=== PATIENT | female | born 1985 | race Caucasian/White ===

== ENCOUNTER 2020-05-12 09:03 | Inpatient (IN) | payer MEDICAID ==
[~2020-05-12 09:03] MED LIST: Bupivacaine 0.25% 10 ML SDV ONE; ePHEDrine Sulfate/0.9% NaCl/Pf 25 MG/5 ML SYRINGE IV ONE
[2020-05-12] MEDS ORDERED: Sodium Chloride 0.9% 10 ML Syringe FLUSH PRN (09:16)
[2020-05-12] MEDS ORDERED: Nalbuphine 10 MG/ML Syringe IVPUSH PRN (09:16)
[2020-05-12] MEDS ORDERED: Ondansetron 4 MG/2 ML SDV IVPUSH PRN (09:16)
--- NOTE | 2020-05-12 09:22 | PCM.LDHP ---
L&D History of Present Illness - General Date of Service: 05/12/20 Admit Problem/Dx: Patient Status Order with Admit Dx/Problem 05/12/20 09:16 Patient Status [ADT] Routine Admission Diagnosis/Problem Admission Diagnosis/Problem Source of Information: Patient History Limitations: Reports: No Limitations - History of Present Illness Introduction:: Patient is a 34-year-old at 38-0/7 weeks who presents in labor. Contractions started early this morning. Currently occurring every 3-5 minutes. 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 (Approximate): - Past Surgical History Female Surgical History: Reports: D&C, LEEP Social & Family History - Tobacco Use Smoking Status *Q: Former Smoker - Alcohol Use Alcohol Use History: No - Recreational Drug Use Recreational Drug Use: No H&P Review of Systems - Review of Systems: Review Of Systems: See Below General: Reports: No Symptoms Pulmonary: Reports: No Symptoms Cardiovascular: Reports: No Symptoms Gastrointestinal: Reports: Abdominal Pain (contractions) Genitourinary: Reports: No Symptoms Musculoskeletal: Reports: No Symptoms Psychiatric: Reports: No Symptoms Neurological: Reports: No Symptoms L&D Exam - Exam Exam: See Below - OB Specific Contraction Intensity: Moderate to Strong Movement: Active Heart Tones: Present Heart Tones per Min: 130 Heart Rate (FHR) Variability: Moderate (6-25 bmp) Presentation: Vertex - Turner Score Turner Score Cervix Position: Anterior Turner Score Consistency: Soft Turner Score Effacement: >80% Turner Score Dilation: > 5 cm Turner Score Infant's Station: -2 Turner Score Total: 11 - Exam General: Alert, Oriented, Cooperative Lungs: Clear to Auscultation, Normal Respiratory Effort Cardiovascular: Regular Rate, Regular Rhythm GI/Abdominal Exam: Soft, Non-Tender Genitourinary: Normal external exam Extremities: Normal Inspection Skin: Warm, Dry, Intact - Patient Data Result Diagrams: 05/12/20 09:33 - Problem List (1) 38 weeks gestation of SNOMED Code(s): 95380080 ICD Code: Z3A.38 - 38 WEEKS GESTATION OF Status: Acute Current Visit: Yes (2) Gestational diabetes SNOMED Code(s): 23793057 ICD Code: O24.419 - GESTATIONAL DIABETES MELLITUS IN , UNSP CONTROL Status: Acute Current Visit: Yes Qualifiers: Gestational diabetes mellitus control: diet-controlled Trimester: third trimester Qualified Code(s): O24.410 - Gestational diabetes mellitus in , diet controlled (3) Rubella non-immune status, antepartum SNOMED Code(s): 948964695 ICD Code: O99.89 - OTH DISEASES AND CONDITIONS COMPL PREG/CHLDBRTH; Z28.3 - UNDERIMMUNIZATION STATUS Status: Acute Current Visit: Yes Problem List Initiated/Reviewed/Updated: Yes Orders Last 24hrs: Active Orders 24 hr Category Date Time Status Patient Status [ADT] Routine ADT 05/12/20 09:16 Active Activity as Tolerated [RC] PFP Care 05/12/20 09:16 Active Blood Glucose Check, Bedside [RC] ASDIRECTED Care 05/12/20 09:19 Active Communication Order [RC] ASDIRECTED Care 05/12/20 09:16 Active Heart Tones [RC] ASDIRECTED Care 05/12/20 09:17 Active Non Stress Test [RC] PER UNIT ROUTINE Care 05/12/20 09:16 Active Notify Provider [RC] PFP Care 05/12/20 09:16 Active Notify Provider [RC] PRN Care 05/12/20 09:16 Active Peripheral IV Care [RC] . DIRECTED Care 05/12/20 09:17 Active Pump Management, Intrathecal [RC] ASDIRECTED Care 05/12/20 09:17 Active Urinary Catheter Assessment [RC] ASDIRECTED Care 05/12/20 09:16 Active Vital Signs [RC] PER UNIT ROUTINE Care 05/12/20 09:16 Active Regular Diet [DIET] Diet 05/12/20 Lunch Active CBC WITH AUTO DIFF [HEME] Stat Lab 05/12/20 09:16 Ordered CORONAVIRUS COVID-19 MILAGRO [MOLEC] Stat Lab 05/12/20 09:18 Ordered RAPID PLASMA REAGIN,RPR [CHEM] Routine Lab 05/12/20 09:16 Ordered TYPE AND SCREEN [BBK] Stat Lab 05/12/20 09:16 Ordered Lactated Ringers [Ringers, Lactated] 1,000 ml Med 05/12/20 09:30 Ordered IV ASDIRECTED Nalbuphine [Nubain] Med 05/12/20 09:16 Ordered 10 mg IVPUSH Q2H PRN Ondansetron [Zofran] Med 05/12/20 09:16 Ordered 4 mg IVPUSH Q4H PRN Oxytocin/Lactated Ringers [Pitocin in LR 10 Units/1,000 Med 05/12/20 09:30 Ordered ML] 10 unit in 1,000 ml IV .CONTINUOUS Sodium Chloride 0.9% [Saline Flush] Med 05/12/20 09:16 Ordered 10 ml FLUSH ASDIRECTED PRN Electronic Heart Tones Ext w TOCO [WOMSER] Ot 05/12/20 09:16 Ordered Routine Electronic Heart Tones Internal [WOMSER] Per Unit Ot 05/12/20 09:16 Ordered Routine Peripheral IV Insertion Adult [OM.PC] Routine Ot 05/12/20 09:16 Ordered Resuscitation Status Routine Resus Stat 05/12/20 09:16 Ordered Medication Orders Oxytocin/Lactated Ringer's (Pitocin In Lr 10 Units/1,000 Ml) 10 unit in 1,000 mls @ 500 mls/hr IV .CONTINUOUS FEI Lactated Ringer's (Ringers, Lactated) 1,000 mls @ 100 mls/hr IV ASDIRECTED FEI Nalbuphine HCl (Nubain) 10 mg IVPUSH Q2H PRN PRN Reason: Pain Ondansetron HCl (Zofran) 4 mg IVPUSH Q4H PRN PRN Reason: Nausea/Vomiting Sodium Chloride (Saline Flush) 10 ml FLUSH ASDIRECTED PRN PRN Reason: Keep Vein Open Assessment/Plan Comment:: * Labs done * Sugars q4 hours - will need 2hr GTT at check * GBS negative, no need for antibiotics * Pain management per patient preference * Anticipate
[2020-05-12] MEDS ORDERED: Oxytocin/Lactated Ringers 10 UNIT/1,000 ML BAG IV SCH ×2 (09:30→14:45)
[2020-05-12] MEDS: Lactated Ringers 1,000 ML IV SCH ×2 (09:44→10:45)
[2020-05-12] MEDS ORDERED: Bupivacaine/fentaNYL/NS 100 ML Bag EPIDUR PRN (09:56)
[2020-05-12] MEDS ORDERED: fentaNYL 100 MCG/2 ML SDV EPIDUR PRN (09:56)
[2020-05-12] MEDS ORDERED: ePHEDrine 50 MG/ML SDV IVPUSH PRN (09:56)
[2020-05-12] MEDS ORDERED: diphenhydrAMINE 50 MG/ML SDV IVPUSH PRN (09:56)
--- NOTE | 2020-05-12 10:37 | PCM.PREANE ---
Preanesthetic Assessment - Procedure Proposed Procedure: belkis - Anesthesia/Transfusion/Family Hx Anesthesia History: Prior Anesthesia Without Reaction Family History of Anesthesia Reaction: No Transfusion History: No Prior Transfusion(s) - Review of Systems General: No Symptoms Pulmonary: No Symptoms Cardiovascular: No Symptoms Gastrointestinal: No Symptoms Neurological: No Symptoms Other: Reports: Diabetes (gestational diabetes) - Physical Assessment Vital Signs: 99% 129/76 103 16 Height: 1 ft 9.65 in Weight: 106.141 kg ASA Class: 2 Mental Status: Alert & Oriented x3 Airway Class: Mallampati = 1 Dentition: Reports: Normal Dentition Thyro-Mental Finger Breadths: 3 Mouth Opening Finger Breadths: 3 ROM/Head Extension: Full Lungs: Clear to Auscultation, Normal Respiratory Effort Cardiovascular: Regular Rate, Regular Rhythm - Lab Values: Laboratory Last Values WBC 10.27 K/mm3 (3.98-10.04) H 05/12/20 09:33 RBC 4.48 M/mm3 (3.98-5.22) 05/12/20 09:33 Hgb 13.4 gm/dl (11.2-15.7) 05/12/20 09:33 Hct 40.6 % (34.1-44.9) 05/12/20 09:33 MCV 90.6 fl (79.4-94.8) 05/12/20 09:33 MCH 29.9 pg (25.6-32.2) 05/12/20 09:33 MCHC 33.0 g/dl (32.2-35.5) 05/12/20 09:33 RDW Std Deviation 42.6 fL (36.4-46.3) 05/12/20 09:33 Plt Count 290 K/mm3 (182-369) 05/12/20 09:33 MPV 11.2 fl (9.4-12.3) 05/12/20 09:33 Neut % (Auto) 83.9 % (34.0-71.1) H 05/12/20 09:33 Lymph % (Auto) 10.4 % (19.3-51.7) L 05/12/20 09:33 [place] % (Auto) 5.3 % (4.7-12.5) 05/12/20 09:33 Eos % (Auto) 0 (0.7-5.8) L 05/12/20 09:33 Baso % (Auto) 0.1 % (0.1-1.2) 05/12/20 09:33 Neut # (Auto) 8.62 K/mm3 (1.56-6.13) H 05/12/20 09:33 Lymph # (Auto) 1.07 K/mm3 (1.18-3.74) L 05/12/20 09:33 [place] # (Auto) 0.54 K/mm3 (0.24-0.36) H 05/12/20 09:33 Eos # (Auto) 0.00 K/mm3 (0.04-0.36) L 05/12/20 09:33 Baso # (Auto) 0.01 K/mm3 (0.01-0.08) 05/12/20 09:33 POC Glucose 91 mg/dL (70-105) 05/12/20 09:33 SARS-CoV-2 RNA (MILAGRO) Negative (NEGATIVE) 05/12/20 09:15 Blood Type B POSITIVE 05/12/20 09:33 Gel Antibody Screen Negative 05/12/20 09:33 - Allergies Allergies/Adverse Reactions: Allergies Allergy/AdvReac Type Severity Reaction Status Date / Time No Known Allergies Allergy Verified 05/12/20 09:16 - Blood Blood Available: No - Acknowledgements Anesthesia Type Planned: Epidural Pt an Appropriate Candidate for the Planned Anesthesia: Yes Alternatives and Risks of Anesthesia Discussed w Pt/Guardian: Yes Pt/Guardian Understands and Agrees with Anesthesia Plan: Yes PreAnesthesia Questionnaire Cardiovascular History: Reports: None Respiratory History: Reports: None Gastrointestinal History: Reports: None 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: , 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 Endocrine/Metabolic History: Reports: Diabetes, Gestational, Obesity/BMI 30+ Oncologic (Cancer) History: Reports: None - Past Surgical History Female Surgical History: Reports: D&C, LEEP - History Comment History Comment: home meds fish oil and vits - SUBSTANCE USE Smoking Status *Q: Former Smoker Tobacco Use Within Last Twelve Months: No Second Hand Smoke Exposure: No Days Per Week of Alcohol Use: 0 Recreational Drug Use History: No - CURRENT (IN HOUSE) MEDS Current Meds: Current Medications Diphenhydramine HCl (Benadryl) 25 mg IVPUSH Q6H PRN PRN Reason: pruritis Ephedrine Sulfate (Ephedrine Sulfate) 5 mg IVPUSH ASDIRECTED PRN PRN Reason: Hypotension Fentanyl (Sublimaze) 100 mcg EPIDUR Q3H PRN PRN Reason: Pain Last Admin: 05/12/20 10:13 Dose: 100 mcg Documented by: Fentanyl/Bupivacaine HCl (Fentanyl/Bupivacaine/Ns 2 Mcg-0.125% 100 Ml) 100 ml EPIDUR ASDIRECTED PRN PRN Reason: Pain Last Admin: 05/12/20 10:14 Dose: 100 ml Documented by: Oxytocin/Lactated Ringer's (Pitocin In Lr 10 Units/1,000 Ml) 10 unit in 1,000 mls @ 500 mls/hr IV .CONTINUOUS FEI Lactated Ringer's (Ringers, Lactated) 1,000 mls @ 100 mls/hr IV ASDIRECTED FEI Last Admin: 05/12/20 09:44 Dose: 999 mls/hr Documented by: Nalbuphine HCl (Nubain) 10 mg IVPUSH Q2H PRN PRN Reason: Pain Ondansetron HCl (Zofran) 4 mg IVPUSH Q4H PRN PRN Reason: Nausea/Vomiting Sodium Chloride (Saline Flush) 10 ml FLUSH ASDIRECTED PRN PRN Reason: Keep Vein Open
--- NOTE | 2020-05-12 17:30 | PCM.DEL ---
L & D Note - General Info Date of Service: 05/12/20 - Delivery Note Labor: Spontaneous Delivery Outcome: Livebirth Delivery Method: Spontaneous Vaginal Delivery-Single Delivery Mode: Vacuum Extraction Presentation: Left Occiput Anterior (ANDREIA) Nuchal Cord: None Anesthesia Type: Epidural Amniotic Fluid Description: Clear Episiotomy Type: None Laceration: 2nd Degree, Perineal Suture type: Vicryl Suture size: 2-0 Placenta: Intact, Spontaneous Cord: 3 Vessels Estimated Blood Loss: 200 Resuscitation Needed: Yes : Bulb Syringe, Stimulated, Warmed, [place] Used, Warmer Used Delivery Comments (Free Text/Narrative):: The patient was pushing in the dorsal lithotomy position. Sterile vaginal exam complete/complete/+3 station. head in ANDREIA presentation. Maternal pushing effort was good and the pelvis was felt to be adequate for an instrument assisted delivery. Given exhaustion (had pushed for 4 hours) the decision was made to proceed with vacuum assisted vaginal delivery. The mushroom cup was placed without difficulty with care to avoid the vaginal side chapman. Applied at 1711 with pop off at 1713 after pushing with 1 contraction. Reapplied with delivery of head at 1715 with 2nd contraction. Total pressure applied 550 mm Hg. Suction was removed following delivery of the head. No nuchal cord. With gentle downward traction the shoulder and body delivered. placed on maternal abdomen. Cord clamped and cut. Placenta allowed time to separate an expelled intact. Inspection of the perineum following delivery with a 2nd degree laceration which was repaired with a 2-0 vicryl in the typical fashion Vacuum Extractor Progress Note - Alternative Labor Strategies Considered Alternative Labor Strategies Considered:: Reports: Yes Strategies Considered:: Reports: Contraction Intensity Adequate, Position Changes Used to Facilitate Rotation & Descent, Empty Bladder Indications Considered:: Reports: Yes Indications:: Reports: Shortening of 2nd Stage for Maternal Benefit Time Out:: Reports: Yes - Patient Prepared Patient Prepared:: Reports: Yes Informed Consent:: Reports: Verbal Risks: Reports: Yes Risks Include:: Reports: Laceration, Shoulder Dystocia, Maternal Injury Anesthesia/Analgesia Adequate:: Reports: Yes - Probability of Success High Probability of Success:: Reports: Yes Weight Estimated:: Reports: AGA Patient Diabetic:: Reports: Yes (GODMA1) Pelvis Adequate:: Reports: Yes Position:: ANDREIA Asynclitic:: Reports: No Station:: +3 - Application Time Maximum Application Time & Number of Pop-Offs Predetermined:: Reports: Yes Maximum Pressure Maintained in [place] (cm Hg):: 550 Total Application Time (min): *max=20min: 4 Number of Times Cup Disengaged:: 1 Type of Vacuum Used:: Reports: Cup: Mushroom type Vacuum Extraction: Successful - Exit Strategy Exit strategy available:: Reports: Yes and resuscitation teams readily available:: Reports: Yes - General Info Date of Service: 05/12/20 - Patient Data Vitals - Most Recent: Last Vital Signs Temp 36.8 C 05/12/20 09:16 Pulse 92 05/12/20 09:16 Resp 18 05/12/20 09:16 BP 131/86 05/12/20 09:16 Pulse Ox 99 05/12/20 09:16 Weight - Most Recent: 106.141 kg I&O - Last 24 Hours: Intake & Output 05/12/20 05/12/20 05/12/20 06:59 14:59 22:59 Intake Total 240 Balance 240 - Problem List & Annotations (1) 38 weeks gestation of SNOMED Code(s): 59135118 Code(s): Z3A.38 - 38 WEEKS GESTATION OF Status: Acute Current Visit: Yes (2) Gestational diabetes SNOMED Code(s): 45682730 Code(s): O24.419 - GESTATIONAL DIABETES MELLITUS IN , UNSP CONTROL Status: Acute Current Visit: Yes Qualifiers: Gestational diabetes mellitus control: diet-controlled Trimester: third trimester Qualified Code(s): O24.410 - Gestational diabetes mellitus in , diet controlled (3) Rubella non-immune status, antepartum SNOMED Code(s): 279583650 Code(s): O99.89 - OTH DISEASES AND CONDITIONS COMPL PREG/CHLDBRTH; Z28.3 - UNDERIMMUNIZATION STATUS Status: Acute Current Visit: Yes (4) Vacuum-assisted vaginal delivery SNOMED Code(s): 48163399774090243 Code(s): Z37.9 - OUTCOME OF DELIVERY, UNSPECIFIED Status: Acute Current Visit: Yes - Problem List Review Problem List Initiated/Reviewed/Updated: Yes - My Orders Last 24 Hours: My Active Orders 05/12/20 09:16 Patient Status [ADT] Routine Activity as Tolerated [RC] PFP Communication Order [RC] ASDIRECTED Notify Provider [RC] PFP Notify Provider [RC] PRN Urinary Catheter Assessment [RC] ASDIRECTED Vital Signs [RC] PER UNIT ROUTINE RAPID PLASMA REAGIN,RPR [CHEM] Routine Nalbuphine [Nubain] 10 mg IVPUSH Q2H PRN Ondansetron [Zofran] 4 mg IVPUSH Q4H PRN Sodium Chloride 0.9% [Saline Flush] 10 ml FLUSH ASDIRECTED PRN Electronic Heart Tones Ext w TOCO [WOMSER] Routine Electronic Heart Tones Internal [WOMSER] Per Unit Routine Peripheral IV Insertion Adult [OM.PC] Routine Resuscitation Status Routine 05/12/20 09:17 Heart Tones [RC] ASDIRECTED Peripheral IV Care [RC] . DIRECTED Pump Management, Intrathecal [RC] ASDIRECTED 05/12/20 09:19 Blood Glucose Check, Bedside [RC] ASDIRECTED 05/12/20 09:30 Lactated Ringers [Ringers, Lactated] 1,000 ml IV ASDIRECTED Oxytocin/Lactated Ringers [Pitocin in LR 10 Units/1,000 ML] 10 unit in 1,000 ml IV .CONTINUOUS 05/12/20 10:27 PATIENT RETYPE [BBK] Routine 05/12/20 Lunch Regular Diet [DIET] 05/12/20 14:45 Oxytocin/Lactated Ringers [Pitocin in LR 10 Units/1,000 ML] 10 unit in 1,000 ml IV TITRATE - Assessment Assessment:: PPD#0 - Plan Plan:: * Routine cares * Breast feeding * Blood sugar in AM * MMR prior to discharge * Discharge home in 2 days
[2020-05-12] MEDS ORDERED: Docusate Sodium 100 MG Cap PO PRN (18:24)
[2020-05-12] MEDS ORDERED: Witch Hazel Medicated Pads 40/Jar TOP PRN (18:24)
[2020-05-12] MEDS ORDERED: Benzocaine/Menthol 20%-0.5% Spray 56 GM Canister TOP PRN (18:24)
[2020-05-12] MEDS ORDERED: Acetaminophen 325 MG Tab PO PRN (18:24)
[2020-05-12] MEDS: Ibuprofen 600 MG Tab PO PRN (18:44)
[2020-05-13] MEDS: Ibuprofen 600 MG Tab PO PRN ×3 (03:13→20:32)
--- NOTE | 2020-05-13 07:59 | PCM48HPAN ---
Post Anesthesia Note - EVALUATION WITHIN 48HRS OF ANESTHETIC Vital Signs in Normal Range: Yes Patient Participated in Evaluation: Yes Respiratory Function Stable: Yes Airway Patent: Yes Cardiovascular Function Stable: Yes Hydration Status Stable: Yes Pain Control Satisfactory: Yes Nausea and Vomiting Control Satisfactory: Yes Mental Status Recovered: Yes Vital Signs: Last Vital Signs Temp 36.6 C 05/13/20 03:14 Pulse 80 05/13/20 03:14 Resp 14 05/13/20 03:14 BP 104/61 05/13/20 03:14 Pulse Ox 98 05/13/20 03:14
--- NOTE | 2020-05-13 08:33 | PCM.PNPP ---
- General Info Date of Service: 05/13/20 Functional Status: Reports: Pain Controlled, Tolerating Diet, Ambulating, Urinating - Review of Systems General: Reports: No Symptoms Pulmonary: Reports: No Symptoms Cardiovascular: Reports: No Symptoms Gastrointestinal: Reports: No Symptoms Genitourinary: Reports: No Symptoms Musculoskeletal: Reports: No Symptoms Neurological: Reports: No Symptoms - Patient Data Vital Signs - Most Recent: Last Vital Signs Temp 36.6 C 05/13/20 03:14 Pulse 80 05/13/20 03:14 Resp 14 05/13/20 03:14 BP 104/61 05/13/20 03:14 Pulse Ox 98 05/13/20 03:14 Weight - Most Recent: 106.141 kg I&O - Last 24 Hours: Intake & Output 05/12/20 05/13/20 05/13/20 22:59 06:59 14:59 Intake Total 240 Balance 240 Lab Results - Last 24 Hours: Laboratory Results - last 24 hr 05/12/20 05/12/20 05/12/20 Range/Units 09:15 09:33 09:33 WBC 10.27 H (3.98-10.04) K/mm3 RBC 4.48 (3.98-5.22) M/mm3 Hgb 13.4 (11.2-15.7) gm/dl Hct 40.6 (34.1-44.9) % MCV 90.6 (79.4-94.8) fl MCH 29.9 (25.6-32.2) pg MCHC 33.0 (32.2-35.5) g/dl RDW Std Deviation 42.6 (36.4-46.3) fL Plt Count 290 (182-369) K/mm3 MPV 11.2 (9.4-12.3) fl Neut % (Auto) 83.9 H (34.0-71.1) % Lymph % (Auto) 10.4 L (19.3-51.7) % [place] % (Auto) 5.3 (4.7-12.5) % Eos % (Auto) 0 L (0.7-5.8) Baso % (Auto) 0.1 (0.1-1.2) % Neut # (Auto) 8.62 H (1.56-6.13) K/mm3 Lymph # (Auto) 1.07 L (1.18-3.74) K/mm3 [place] # (Auto) 0.54 H (0.24-0.36) K/mm3 Eos # (Auto) 0.00 L (0.04-0.36) K/mm3 Baso # (Auto) 0.01 (0.01-0.08) K/mm3 POC Glucose (70-105) mg/dL SARS-CoV-2 RNA (MILAGRO) Negative (NEGATIVE) Blood Type B POSITIVE Gel Antibody Screen Negative 05/12/20 05/12/20 05/13/20 Range/Units 09:33 12:40 08:02 WBC (3.98-10.04) K/mm3 RBC (3.98-5.22) M/mm3 Hgb (11.2-15.7) gm/dl Hct (34.1-44.9) % MCV (79.4-94.8) fl MCH (25.6-32.2) pg MCHC (32.2-35.5) g/dl RDW Std Deviation (36.4-46.3) fL Plt Count (182-369) K/mm3 MPV (9.4-12.3) fl Neut % (Auto) (34.0-71.1) % Lymph % (Auto) (19.3-51.7) % [place] % (Auto) (4.7-12.5) % Eos % (Auto) (0.7-5.8) Baso % (Auto) (0.1-1.2) % Neut # (Auto) (1.56-6.13) K/mm3 Lymph # (Auto) (1.18-3.74) K/mm3 [place] # (Auto) (0.24-0.36) K/mm3 Eos # (Auto) (0.04-0.36) K/mm3 Baso # (Auto) (0.01-0.08) K/mm3 POC Glucose 91 118 H 97 (70-105) mg/dL SARS-CoV-2 RNA (MILAGRO) (NEGATIVE) Blood Type Gel Antibody Screen Med Orders - Current: Current Medications Acetaminophen (Tylenol) 650 mg PO Q4H PRN PRN Reason: mild pain or fever Benzocaine/Menthol (Dermoplast Pain Relief Iaeger) 0 gm TOP ASDIRECTED PRN PRN Reason: Perineal Comfort Measure Last Admin: 05/13/20 03:14 Dose: 1 canister Documented by: Docusate Sodium (Colace) 100 mg PO BID PRN PRN Reason: Constipation Last Admin: 05/12/20 18:45 Dose: 100 mg Documented by: Ibuprofen (Motrin) 600 mg PO Q6H PRN PRN Reason: Mild pain or fever Last Admin: 05/13/20 03:13 Dose: 600 mg Documented by: Ashley Yancey (Neeraj) 1 pad TOP ASDIRECTED PRN PRN Reason: Perineal Comfort Measure Last Admin: 05/13/20 03:14 Dose: 1 tub Documented by: Discontinued Medications Bupivacaine HCl (Sensorcaine-Mpf 0.25%) 10 ml .ROUTE .[employer] ONE Stop: 05/12/20 00:01 Diphenhydramine HCl (Benadryl) 25 mg IVPUSH Q6H PRN PRN Reason: pruritis Ephedrine Sulfate (Ephedrine Sulfate) 5 mg IVPUSH ASDIRECTED PRN PRN Reason: Hypotension Ephedrine Sulfate (Ephedrine 25 Mg/5 Ml Syringe) 25 mg IV .[employer] ONE Stop: 05/12/20 00:01 Fentanyl (Sublimaze) 100 mcg EPIDUR Q3H PRN PRN Reason: Pain Last Admin: 05/12/20 10:13 Dose: 100 mcg Documented by: Fentanyl/Bupivacaine HCl (Fentanyl/Bupivacaine/Ns 2 Mcg-0.125% 100 Ml) 100 ml EPIDUR ASDIRECTED PRN PRN Reason: Pain Last Admin: 05/12/20 10:14 Dose: 100 ml Documented by: Oxytocin/Lactated Ringer's (Pitocin In Lr 10 Units/1,000 Ml) 10 unit in 1,000 mls @ 500 mls/hr IV .CONTINUOUS FEI Lactated Ringer's (Ringers, Lactated) 1,000 mls @ 100 mls/hr IV ASDIRECTED FEI Last Infusion: 05/12/20 18:21 Dose: Infused Documented by: Oxytocin/Lactated Ringer's (Pitocin In Lr 10 Units/1,000 Ml) 10 unit in 1,000 mls @ 12 mls/hr IV TITRATE FEI; Protocol Last Titration: 05/12/20 18:23 Dose: 84 munits/min, 504 mls/hr Documented by: Nalbuphine HCl (Nubain) 10 mg IVPUSH Q2H PRN PRN Reason: Pain Ondansetron HCl (Zofran) 4 mg IVPUSH Q4H PRN PRN Reason: Nausea/Vomiting Sodium Chloride (Saline Flush) 10 ml FLUSH ASDIRECTED PRN PRN Reason: Keep Vein Open - Interaction Infant Disposition, : [place] in Room with Family Infant Interaction: Holding Infant Infant Feeding: Attempted ; Nursed Fair/Poor Support Person: - Recovery Exam Fundal Tone: Firm Fundal Level: 1 Fingerbreadths Below Umbilicus Fundal Placement: Midline Lochia Amount: Small Lochia Color: Rubra/Red Perineum Description: Other (see below) Other Perinuem Description: 2nd degree lac with repair Episiotomy/Laceration: Approximated Bladder Status: Voiding - Exam General: Alert, Oriented, Cooperative GI/Abdominal Exam: Soft, Non-Tender Extremities: Normal Inspection Skin: Warm, Dry, Intact - Problem List & Annotations (1) 38 weeks gestation of SNOMED Code(s): 51311240 Code(s): Z3A.38 - 38 WEEKS GESTATION OF Status: Acute Current Visit: Yes (2) Gestational diabetes SNOMED Code(s): 28432034 Code(s): O24.419 - GESTATIONAL DIABETES MELLITUS IN , UNSP CONTROL Status: Acute Current Visit: Yes Qualifiers: Gestational diabetes mellitus control: diet-controlled Trimester: third trimester Qualified Code(s): O24.410 - Gestational diabetes mellitus in , diet controlled (3) Rubella non-immune status, antepartum SNOMED Code(s): 006446922 Code(s): O99.89 - OTH DISEASES AND CONDITIONS COMPL PREG/CHLDBRTH; Z28.3 - UNDERIMMUNIZATION STATUS Status: Acute Current Visit: Yes (4) Vacuum-assisted vaginal delivery SNOMED Code(s): 09079226123898212 Code(s): Z37.9 - OUTCOME OF DELIVERY, UNSPECIFIED Status: Acute Current Visit: Yes - Problem List Review Problem List Initiated/Reviewed/Updated: Yes - My Orders Last 24 Hours: My Active Orders 05/12/20 09:16 Resuscitation Status Routine 05/12/20 Dinner Regular Diet [DIET] 05/12/20 18:24 Acetaminophen [TylenoL] 650 mg PO Q4H PRN Benzocaine/Menthol [Dermoplast Pain Relief Iaeger] See Dose Instructions TOP ASDIRECTED PRN Docusate Sodium [Colace] 100 mg PO BID PRN Ibuprofen [Motrin] 600 mg PO Q6H PRN witch Gasper [Tucks] 1 pad TOP ASDIRECTED PRN Heat Therapy [OM.PC] PRN 05/12/20 18:24 Activity as Tolerated [RC] PER UNIT ROUTINE Vital Signs [RC] 03,,, Assess Lochia [WOMSER] Per Unit Routine Assess Uterine Involution [WOMSER] Per Unit Routine Breast Pump [WOMSER] Per Unit Routine Ice Therapy [OM.PC] Per Unit Routine Perineal Care [OM.PC] Per Unit Routine Peripheral IV Discontinue [OM.PC] Routine Sitz Bath [OM.PC] Per Unit Routine 05/13/20 18:24 Heat Therapy [OM.PC] PRN - Assessment Assessment:: PPD#1 - Plan Plan:: * Routine cares * Breast feeding * Blood sugar this AM normal * MMR prior to discharge * Discharge home tomorrow
--- NOTE | 2020-05-14 07:38 | PCM.PNPP ---
- General Info Date of Service: 05/14/20 Functional Status: Reports: Pain Controlled, Tolerating Diet, Ambulating, Urinating - Review of Systems General: Reports: No Symptoms Pulmonary: Reports: No Symptoms Cardiovascular: Reports: No Symptoms Gastrointestinal: Reports: No Symptoms Genitourinary: Reports: No Symptoms Musculoskeletal: Reports: No Symptoms Neurological: Reports: No Symptoms Systems Review Comment:: Overall doing well. Just notes some difficulty with infant latch - Patient Data Vital Signs - Most Recent: Last Vital Signs Temp 36.8 C 05/14/20 04:19 Pulse 77 05/14/20 04:19 Resp 16 05/14/20 04:19 BP 90/52 L 05/14/20 04:19 Pulse Ox 95 05/14/20 04:19 Weight - Most Recent: 106.141 kg I&O - Last 24 Hours: Intake & Output 05/13/20 05/14/20 05/14/20 22:59 06:59 14:59 Intake Total 120 Balance 120 Lab Results - Last 24 Hours: Laboratory Results - last 24 hr 05/13/20 Range/Units 08:02 POC Glucose 97 (70-105) mg/dL Med Orders - Current: Current Medications Acetaminophen (Tylenol) 650 mg PO Q4H PRN PRN Reason: mild pain or fever Last Admin: 05/13/20 14:11 Dose: 650 mg Documented by: Benzocaine/Menthol (Dermoplast Pain Relief [place]) 0 gm TOP ASDIRECTED PRN PRN Reason: Perineal Comfort Measure Last Admin: 05/13/20 03:14 Dose: 1 canister Documented by: Docusate Sodium (Colace) 100 mg PO BID PRN PRN Reason: Constipation Last Admin: 05/12/20 18:45 Dose: 100 mg Documented by: Ibuprofen (Motrin) 600 mg PO Q6H PRN PRN Reason: Mild pain or fever Last Admin: 05/13/20 20:32 Dose: 600 mg Documented by: Ashley Yancey ([place]) 1 pad TOP ASDIRECTED PRN PRN Reason: Perineal Comfort Measure Last Admin: 05/13/20 03:14 Dose: 1 tub Documented by: Discontinued Medications Bupivacaine HCl (Sensorcaine-Mpf 0.25%) 10 ml .ROUTE .STK-MED ONE Stop: 05/12/20 00:01 Diphenhydramine HCl (Benadryl) 25 mg IVPUSH Q6H PRN PRN Reason: pruritis Ephedrine Sulfate (Ephedrine Sulfate) 5 mg IVPUSH ASDIRECTED PRN PRN Reason: Hypotension Ephedrine Sulfate (Ephedrine 25 Mg/5 Ml Syringe) 25 mg IV .BMP [employer] ONE Stop: 05/12/20 00:01 Fentanyl (Sublimaze) 100 mcg EPIDUR Q3H PRN PRN Reason: Pain Last Admin: 05/12/20 10:13 Dose: 100 mcg Documented by: Fentanyl/Bupivacaine HCl (Fentanyl/Bupivacaine/Ns 2 Mcg-0.125% 100 Ml) 100 ml EPIDUR ASDIRECTED PRN PRN Reason: Pain Last Admin: 05/12/20 10:14 Dose: 100 ml Documented by: Oxytocin/Lactated Ringer's (Pitocin In Lr 10 Units/1,000 Ml) 10 unit in 1,000 mls @ 500 mls/hr IV .CONTINUOUS FEI Lactated Ringer's (Ringers, Lactated) 1,000 mls @ 100 mls/hr IV ASDIRECTED FEI Last Infusion: 05/12/20 18:21 Dose: Infused Documented by: Oxytocin/Lactated Ringer's (Pitocin In Lr 10 Units/1,000 Ml) 10 unit in 1,000 mls @ 12 mls/hr IV TITRATE FEI; Protocol Last Titration: 05/12/20 18:23 Dose: 84 munits/min, 504 mls/hr Documented by: Nalbuphine HCl (Nubain) 10 mg IVPUSH Q2H PRN PRN Reason: Pain Ondansetron HCl (Zofran) 4 mg IVPUSH Q4H PRN PRN Reason: Nausea/Vomiting Sodium Chloride (Saline Flush) 10 ml FLUSH ASDIRECTED PRN PRN Reason: Keep Vein Open - Interaction Infant Disposition, : [place] in Room with Family Interaction: Holding Infant Infant Feeding: Attempted ; Nursed Fair/Poor Support Person: - Recovery Exam Fundal Tone: Firm Fundal Level: 1 Fingerbreadths Below Umbilicus Fundal Placement: Midline Lochia Amount: Small Lochia Color: Rubra/Red Perineum Description: Other (see below) Other Perinuem Description: 2nd degree lac with repair Episiotomy/Laceration: Approximated Bladder Status: Voiding Urinary Elimination: Voided - Exam General: Alert, Oriented, Cooperative GI/Abdominal Exam: Soft, Non-Tender Extremities: Normal Inspection Skin: Warm, Dry, Intact - Problem List & Annotations (1) 38 weeks gestation of SNOMED Code(s): 73910737 Code(s): Z3A.38 - 38 WEEKS GESTATION OF Status: Acute Current Visit: Yes (2) Gestational diabetes SNOMED Code(s): 62608240 Code(s): O24.419 - GESTATIONAL DIABETES MELLITUS IN , UNSP CONTROL Status: Acute Current Visit: Yes Qualifiers: Gestational diabetes mellitus control: diet-controlled Trimester: third trimester Qualified Code(s): O24.410 - Gestational diabetes mellitus in , diet controlled (3) Rubella non-immune status, antepartum SNOMED Code(s): 976123419 Code(s): O99.89 - OTH DISEASES AND CONDITIONS COMPL PREG/CHLDBRTH; Z28.3 - UNDERIMMUNIZATION STATUS Status: Acute Current Visit: Yes (4) Vacuum-assisted vaginal delivery SNOMED Code(s): 52952646595113333 Code(s): Z37.9 - OUTCOME OF DELIVERY, UNSPECIFIED Status: Acute Current Visit: Yes - Problem List Review Problem List Initiated/Reviewed/Updated: Yes - My Orders Last 24 Hours: My Active Orders 05/13/20 18:24 Heat Therapy [OM.PC] PRN 05/14/20 07:11 Ready for Discharge [RC] PER UNIT ROUTINE - Assessment Assessment:: PPD#2 - Plan Plan:: * Routine cares * Breast feeding * Will need 2hr GTT at 6 weeks * Has had some difficulty with latch of - will send Rx for breast pump * MMR prior to discharge * Discharge home today
--- NOTE | 2020-05-14 07:40 | PCM.DCSUM1 ---
Discharge Summary - Discharge Data Discharge Date: 05/14/20 Discharge Disposition: Home, Self-Care 01 Condition: Good - Referral to Home Health Primary Care Physician: Justine Cutler MD - Discharge Diagnosis/Problem(s) (1) 38 weeks gestation of SNOMED Code(s): 12728062 ICD Code: Z3A.38 - 38 WEEKS GESTATION OF Status: Acute Current Visit: Yes (2) Gestational diabetes SNOMED Code(s): 36711410 ICD Code: O24.419 - GESTATIONAL DIABETES MELLITUS IN , UNSP CONTROL Status: Acute Current Visit: Yes Qualifiers: Gestational diabetes mellitus control: diet-controlled Trimester: third trimester Qualified Code(s): O24.410 - Gestational diabetes mellitus in , diet controlled (3) Rubella non-immune status, antepartum SNOMED Code(s): 910626404 ICD Code: O99.89 - OTH DISEASES AND CONDITIONS COMPL PREG/CHLDBRTH; Z28.3 - UNDERIMMUNIZATION STATUS Status: Acute Current Visit: Yes (4) Vacuum-assisted vaginal delivery SNOMED Code(s): 14057630094338845 ICD Code: Z37.9 - OUTCOME OF DELIVERY, UNSPECIFIED Status: Acute Current Visit: Yes - Patient Summary/Data Complications: None Consults: None Recommended Follow-up Testing/Procedures: Follow up in 3 weeks for check Hospital Course: 34 y/o at 38 0/7 wks who presented in labor. Quickly progressed to complete dilation, but then did require augmentation with pushing. After pushing for about 4 hours did desire VAVD for maternal exhaustion. Delivery was uncomplicated. See note. did well and was discharged home on PPD#2 - Patient Instructions Diet: Regular Diet as Tolerated Activity: As Tolerated Activity, Other: Pelvic Rest for 6 weeks Driving: May Drive Today Showering/Bathing: May Shower Showering/Bathing, Other: May Bathe Notify Provider of: Fever, Increased Pain, Swelling and Redness, Drainage, Nausea and/or Vomiting - Discharge Plan *PRESCRIPTION DRUG MONITORING PROGRAM REVIEWED*: No *COPY OF PRESCRIPTION DRUG MONITORING REPORT IN PATIENT JAVI: No Home Medications: Home Meds Pnv,Calcium 72/Iron/Folic Acid [M- Plus Tablet] 1 tab PO DAILY 05/12/20 [History] Docusate Sodium [Colace] 100 mg PO BID PRN cap 05/14/20 [Rx] Ibuprofen [Motrin] 600 mg PO Q6H PRN tablet 05/14/20 [Rx] Referrals: Sapna Gee MD [Physician] - (3 weeks for check - can be telehealth ) - Discharge Summary/Plan Comment DC Time >30 min.: No - Patient Data Vitals - Most Recent: Last Vital Signs Temp 36.8 C 05/14/20 04:19 Pulse 77 05/14/20 04:19 Resp 16 05/14/20 04:19 BP 90/52 L 05/14/20 04:19 Pulse Ox 95 05/14/20 04:19 Weight - Most Recent: 106.141 kg I&O - Last 24 hours: Intake & Output 05/13/20 05/14/20 05/14/20 22:59 06:59 14:59 Intake Total 120 Balance 120 Lab Results - Last 24 hrs: Laboratory Results - last 24 hr 05/13/20 Range/Units 08:02 POC Glucose 97 (70-105) mg/dL Med Orders - Current: Current Medications Acetaminophen (Tylenol) 650 mg PO Q4H PRN PRN Reason: mild pain or fever Last Admin: 05/13/20 14:11 Dose: 650 mg Documented by: Benzocaine/Menthol (Dermoplast Pain Relief [place]) 0 gm TOP ASDIRECTED PRN PRN Reason: Perineal Comfort Measure Last Admin: 05/13/20 03:14 Dose: 1 canister Documented by: Docusate Sodium (Colace) 100 mg PO BID PRN PRN Reason: Constipation Last Admin: 05/12/20 18:45 Dose: 100 mg Documented by: Ibuprofen (Motrin) 600 mg PO Q6H PRN PRN Reason: Mild pain or fever Last Admin: 05/13/20 20:32 Dose: 600 mg Documented by: Ashley Yancey ([place]) 1 pad TOP ASDIRECTED PRN PRN Reason: Perineal Comfort Measure Last Admin: 05/13/20 03:14 Dose: 1 tub Documented by: Discontinued Medications Bupivacaine HCl (Sensorcaine-Mpf 0.25%) 10 ml .ROUTE .STK-MED ONE Stop: 05/12/20 00:01 Diphenhydramine HCl (Benadryl) 25 mg IVPUSH Q6H PRN PRN Reason: pruritis Ephedrine Sulfate (Ephedrine Sulfate) 5 mg IVPUSH ASDIRECTED PRN PRN Reason: Hypotension Ephedrine Sulfate (Ephedrine 25 Mg/5 Ml Syringe) 25 mg IV .[facility] ONE Stop: 05/12/20 00:01 Fentanyl (Sublimaze) 100 mcg EPIDUR Q3H PRN PRN Reason: Pain Last Admin: 05/12/20 10:13 Dose: 100 mcg Documented by: Fentanyl/Bupivacaine HCl (Fentanyl/Bupivacaine/Ns 2 Mcg-0.125% 100 Ml) 100 ml EPIDUR ASDIRECTED PRN PRN Reason: Pain Last Admin: 05/12/20 10:14 Dose: 100 ml Documented by: Oxytocin/Lactated Ringer's (Pitocin In Lr 10 Units/1,000 Ml) 10 unit in 1,000 mls @ 500 mls/hr IV .CONTINUOUS FEI Lactated Ringer's (Ringers, Lactated) 1,000 mls @ 100 mls/hr IV ASDIRECTED FEI Last Infusion: 05/12/20 18:21 Dose: Infused Documented by: Oxytocin/Lactated Ringer's (Pitocin In Lr 10 Units/1,000 Ml) 10 unit in 1,000 mls @ 12 mls/hr IV TITRATE FEI; Protocol Last Titration: 05/12/20 18:23 Dose: 84 munits/min, 504 mls/hr Documented by: Nalbuphine HCl (Nubain) 10 mg IVPUSH Q2H PRN PRN Reason: Pain Ondansetron HCl (Zofran) 4 mg IVPUSH Q4H PRN PRN Reason: Nausea/Vomiting Sodium Chloride (Saline Flush) 10 ml FLUSH ASDIRECTED PRN PRN Reason: Keep Vein Open
[2020-05-14] MEDS ORDERED: Measles, Mumps & Rubella Vaccine 0.5 ML SDV SUBCUT ONE (09:42)
== END 2020-05-14 10:20 | disposition home or self-care (01) | DRG 807 ==
LOC: JD.OBCHECK 09:03 → JD.OB 09:11 → JD.OBCHECK 09:15 → JD.OB 09:16 → OBSVTOIN 17:15 → JD.OB 17:30
PROVIDERS: ADMIT Obstetrics & Gynecology; ATTEND Obstetrics & Gynecology
PROC: 10D07Z6 Extraction of Products of Conception, Vacuum, Via Natural or Artificial Opening (ICD-10-PCS; principal; 2020-05-12)
PROC: 0KQM0ZZ Repair Perineum Muscle, Open Approach (ICD-10-PCS; 2020-05-12)
PROC: 3E0R3BZ Introduction of Anesthetic Agent into Spinal Canal, Percutaneous Approach (ICD-10-PCS; 2020-05-12)
PROC: 3E0234Z Introduction of Serum, Toxoid and Vaccine into Muscle, Percutaneous Approach (ICD-10-PCS; 2020-05-13)
DX: O24.420 Gestational diabetes mellitus in childbirth, diet controlled (principal); Z37.0 Single live birth; Z20.828 Contact with and (suspected) exposure to other viral communicable diseases; O70.1 Second degree perineal laceration during delivery; Z3A.38 38 weeks gestation of pregnancy; Z87.891 Personal history of nicotine dependence; Z23 Encounter for immunization
CPT/HCPCS: 36415; 51702; 59025; 59409; 82962; 85025; 86850; 86900; 86901; 90471; 90707; A9270-GY; J0171; J2590; J3010; J3490; J7120; U0002

== ENCOUNTER 2021-10-20 06:48 | Inpatient (IN) | payer MEDICAID ==
[~2021-10-20 06:48] MED LIST changes: -ePHEDrine Sulfate/0.9% NaCl/Pf 25 MG/5 ML SYRINGE IV ONE
[2021-10-20] MEDS ORDERED: Sodium Chloride 0.9% 10 ML Syringe FLUSH PRN (07:05)
[2021-10-20] MEDS ORDERED: Nalbuphine 10 MG/1 ML Vial IVPUSH PRN (07:05)
[2021-10-20] MEDS ORDERED: Ondansetron 4 MG/2 ML SDV IVPUSH PRN (07:05)
[2021-10-20] MEDS ORDERED: Oxytocin/Lactated Ringers 10 UNIT/1,000 ML BAG IV SCH ×2 (07:15)
[2021-10-20] MEDS: Lactated Ringers 1,000 ML IV SCH ×2 (08:05→11:15)
[2021-10-20] MEDS ORDERED: Sodium Chloride 0.9% 10 ML Syringe FLUSH SCH (09:00)
[2021-10-20] MEDS ORDERED: Bupivacaine/fentaNYL/NS 100 ML Bag EPIDUR PRN (11:05)
[2021-10-20] MEDS ORDERED: fentaNYL 100 MCG/2 ML SDV EPIDUR PRN (11:05)
[2021-10-20] MEDS ORDERED: ePHEDrine 50 MG/ML SDV IVPUSH PRN (11:05)
[2021-10-20] MEDS ORDERED: diphenhydrAMINE 50 MG/ML SDV IVPUSH PRN (11:05)
[2021-10-20] MEDS ORDERED: Docusate Sodium 100 MG Cap PO PRN (14:11)
[2021-10-20] MEDS ORDERED: Acetaminophen 325 MG Tab PO PRN (14:11)
[2021-10-20] MEDS ORDERED: Benzocaine/Menthol 20%-0.5% Spray 78 GM Cannister TOP PRN (14:11)
[2021-10-20] MEDS ORDERED: Witch Hazel Medicated Pads 40/Jar TOP PRN (14:11)
[2021-10-20] MEDS: Ibuprofen 600 MG Tab PO PRN (21:04)
[2021-10-21] MEDS: Ibuprofen 600 MG Tab PO PRN (04:33)
== END 2021-10-21 13:07 | disposition home or self-care (01) | DRG 807 ==
LOC: JD.OB 06:48
PROVIDERS: ADMIT Obstetrics & Gynecology; ATTEND Obstetrics & Gynecology
PROC: 10E0XZZ Delivery of Products of Conception, External Approach (ICD-10-PCS; principal; 2021-10-20)
PROC: 10907ZC Drainage of Amniotic Fluid, Therapeutic from Products of Conception, Via Natural or Artificial Opening (ICD-10-PCS; 2021-10-20)
PROC: 0HQ9XZZ Repair Perineum Skin, External Approach (ICD-10-PCS; 2021-10-20)
PROC: 3E033VJ Introduction of Other Hormone into Peripheral Vein, Percutaneous Approach (ICD-10-PCS; 2021-10-20)
PROC: 3E0R3BZ Introduction of Anesthetic Agent into Spinal Canal, Percutaneous Approach (ICD-10-PCS; 2021-10-20)
PROC: 00HU33Z Insertion of Infusion Device into Spinal Canal, Percutaneous Approach (ICD-10-PCS; 2021-10-20)
DX: O24.424 Gestational diabetes mellitus in childbirth, insulin controlled (principal); Z37.0 Single live birth; O99.214 Obesity complicating childbirth; O70.0 First degree perineal laceration during delivery; O69.81X0 Labor and delivery complicated by cord around neck, without compression, not applicable or unspecified; Z20.822 Contact with and (suspected) exposure to COVID-19; Z3A.39 39 weeks gestation of pregnancy; Z87.891 Personal history of nicotine dependence
CPT/HCPCS: 01967; 36415; 59025; 59409; 82947; 85025; 86592; 86850; 86900; 86901; A9270-GY; J2590; J3010; J3490; J7120; U0002